=== PATIENT | female | born 1945 | race African-American/Black ===

== ENCOUNTER 2020-04-07 09:53 | Outpatient (CLI) | payer MEDICARE, OTHER, SELFPAY ==
[2020-04-07 10:14] LABS: Basophils Percent Auto 0.3 % (0.2-1.2); Eosinophils Absolute Auto 0.1 K/mm3 (0-0.3); Eosinophils Percent Auto 2.2 % (0-4.4); Hematocrit 37.9 % (37.0-47.0); Hemoglobin 11.4 g/dL (12.0-15.0); Immature Granulocyte Absolute 0.02 K/mm3 (0.00-0.031); Immature Granulocyte Percent A 0.3 % (0-0.5); Lymphocytes Absolute Auto 2.43 K/mm3 (0.9-3.2); Lymphocytes Percent Auto 41.4 % (18.3-44.2); Mean Corpuscular HGB Conc 30.1 g/dl (32-36); Mean Corpuscular Hemoglobin 23.3 pg (26-34); Mean Corpuscular Volume 77.5 fl (80-100); Mean Platelet Volume 9.8 fl (7.4-10.4); Monocytes Absolute Auto 0.5 K/mm3 (0.1-0.6); Neutrophils Absolute Auto 2.8 K/mm3 (1.3-6.7); Neutrophils Percent Auto 47.8 % (45.5-73.1); Platelet Count Result 297 k/mm3 (150-375); Red Blood Count 4.89 M/mm3 (4.2-5.4); Red Cell Distribution Width 15.2 % (11.5-14.5); White Blood Count 5.9 K/mm3 (4.5-10.0)
[2020-04-07 10:23] LABS: Hemoglobin A1C 6.8 % (<5.7)
[2020-04-07 10:26] LABS: Alanine Aminotransferase 25 U/L (4-35); Alkaline Phosphatase 94 U/L (38-126); Aspartate Amino Transferase 30 U/L (14-36); Bilirubin,Total 0.1 mg/dL (0.2-1.3); Blood Urea Nitrogen 15 mg/dL (7-17); Calcium 8.9 mg/dL (8.4-10.2); Carbon Dioxide 29 mmol/L (22-30); Chloride 104 mmol/L (98-107); Cholesterol 130 mg/dL (0-200); Estimated Glomerular Filt Rate > 60; Glucose 103 mg/dL (65-105); HDL Direct 60 mg/dL; Potassium 3.7 mmol/L (3.4-5.0); Sodium 140 mmol/L (137-145); Triglycerides 59 mg/dL (<150)
[2020-04-07 10:37] LABS: LDL Cholesterol Direct 49 mg/dL
[2020-04-07 10:51] LABS: Creatinine Urine 200.8 mg/dL
[2020-04-07 10:58] LABS: MALB Creatinine Ratio 9.2 mg/g (0-30); Microalbumin Urine Random 18.5 mg/L (0-16.7)
[2020-04-07 11:08] LABS: Vitamin D 25 Hydroxy 38.5 ng/mL
== END 2020-04-07 09:54 | disposition home or self-care (01) ==
PROVIDERS: PCP Internal Medicine; Visit Provider Internal Medicine
DX: E11.42 Type 2 diabetes mellitus with diabetic polyneuropathy (principal); E78.5 Hyperlipidemia, unspecified; E55.9 Vitamin D deficiency, unspecified
CPT/HCPCS: 36415; 80053; 80061; 82043; 82306; 83036; 85025

== ENCOUNTER 2020-06-15 08:18 | Outpatient (CLI) | payer MEDICARE, OTHER, SELFPAY ==
--- NOTE | 2020-06-15 08:34 | ECHO_ITS ---
Patient Info Name: Jeanne Kingsley Age: 74 years : 1945 Gender: Female Ht: 60 in Wt: 130 lbs BSA: 1.59 m2 HR: 71 bpm BP: 160 / 96 mmHg Heart Rhythm: Sinus Rhythm Technical Quality: Good Exam Date: 06/15/2020 8:50 AM Exam Location: [facility] Pulmonary Patient Status: Outpatient Admit Date: 06/15/2020 Staff Ordering Physician: Henrik Gibson MD [employer] Operator: Nicolette Jackson RDCS Attending Provider: Henrik Gibson MD Exam Type: CA echo doppler color flow Study Info Indications - rheumatic tricuspid insuffieciency Complete two-dimensional, color flow and Doppler transthoracic echocardiogram is performed. Summary 1. Left ventricular systolic function is normal, estimated at 60-65%. 2. There is no increased left ventricular wall thickness. 3. The left ventricular diastolic function is grade I diastolic dysfunction. 4. There is no aortic valve stenosis. 5. There is mild mitral valve regurgitation. 6. There is mild tricuspid valve regurgitation. 7. The tricuspid valve leaflets are mildly thickened. 8. No pulmonary hypertension, estimated pulmonary arterial systolic pressure is 26 mmHg. Left Ventricle Left ventricular chamber dimension is normal. Left ventricular systolic function is normal, estimated at 60-65%. There is no increased left ventricular wall thickness. The left ventricular diastolic function is grade I diastolic dysfunction. Right Ventricle Right ventricular chamber dimension is normal. Right ventricular systolic function is normal. Left Atria Left atrial chamber dimension is normal. Right Atria Right atrial chamber dimension is normal. Aortic Valve The aortic valve is probable trileaflet. There is no aortic valve stenosis. There is trace aortic valve regurgitation. Pulmonic Valve The pulmonic valve is not well visualized. There is trace pulmonic regurgitation. Mitral Valve The mitral valve has normal leaflets. There is mild mitral valve regurgitation. The mitral valve annulus is mildly calcified. Tricuspid Valve The tricuspid valve leaflets are mildly thickened. There is mild tricuspid valve regurgitation. No pulmonary hypertension, estimated pulmonary arterial systolic pressure is 26 mmHg. Pericardium/Pleural The pericardium appears normal. There is no pericardial effusion. Inferior Vena Cava Normal inferior vena cava with >50% collapse upon inspiration consistent with normal right atrial pressure, 5 mmHg. Aorta The aortic root size at the sinus of Valsalva is normal. There is mild aortic atherosclerosis. Left Ventricular Outflow Tract Name Value Normal LVOT 2D LVOT Diameter 2.0 cm LVOT Doppler LVOT Peak Gradient 3 mmHg LVOT Mean Gradient 2 mmHg LVOT VTI 20 cm LVOT VTI/AV VTI Ratio 0.9 LVOT Stroke Volume 60 ml LVOT CO 10.5 l/min LVOT CI 6.6 l/min/m2 Pulmonic Valve
== END 2020-06-15 08:19 | disposition home or self-care (01) ==
PROVIDERS: PCP Internal Medicine; Visit Provider Internal Medicine
DX: I07.1 Rheumatic tricuspid insufficiency (principal); I34.0 Nonrheumatic mitral (valve) insufficiency
CPT/HCPCS: 93306

== ENCOUNTER 2020-08-04 09:48 | Outpatient (CLI) | payer MEDICARE, OTHER, SELFPAY ==
[2020-08-04 10:49] LABS: Alanine Aminotransferase 48 U/L (4-35); Albumin Level 4.3 g/dL (3.5-5.1); Alkaline Phosphatase 98 U/L (38-126); Anion Gap 11 mmol/L (8-16); Aspartate Amino Transferase 34 U/L (14-36); Bilirubin,Total 0.1 mg/dL (0.2-1.3); Blood Urea Nitrogen 10 mg/dL (7-17); Calcium 9.8 mg/dL (8.4-10.2); Carbon Dioxide 30 mmol/L (22-30); Chloride 103 mmol/L (98-107); Estimated Glomerular Filt Rate > 60; Glucose 117 mg/dL (65-105); Potassium 5.1 mmol/L (3.4-5.0); Sodium 144 mmol/L (137-145)
[2020-08-04 10:57] LABS: Basophils Percent Auto 0.4 % (0.2-1.2); Eosinophils Absolute Auto 0.2 K/mm3 (0-0.3); Eosinophils Percent Auto 3.1 % (0-4.4); Hematocrit 39.8 % (37.0-47.0); Immature Granulocyte Absolute 0.01 K/mm3 (0.00-0.031); Immature Granulocyte Percent A 0.2 % (0-0.5); Lymphocytes Absolute Auto 2.34 K/mm3 (0.9-3.2); Lymphocytes Percent Auto 42.4 % (18.3-44.2); Mean Corpuscular HGB Conc 30.2 g/dl (32-36); Mean Corpuscular Hemoglobin 23.3 pg (26-34); Mean Corpuscular Volume 77.1 fl (80-100); Mean Platelet Volume 9.7 fl (7.4-10.4); Monocytes Absolute Auto 0.4 K/mm3 (0.1-0.6); Monocytes Percent Auto 7.8 % (2.6-8.5); Neutrophils Absolute Auto 2.6 K/mm3 (1.3-6.7); Neutrophils Percent Auto 46.1 % (45.5-73.1); Platelet Count Result 316 k/mm3 (150-375); Red Blood Count 5.16 M/mm3 (4.2-5.4); Red Cell Distribution Width 14.7 % (11.5-14.5); White Blood Count 5.5 K/mm3 (4.5-10.0)
[2020-08-04 11:31] LABS: Hemoglobin A1C 6.6 % (<5.7)
[2020-08-04 11:46] LABS: Iron 93 ug/dL (37-170)
[2020-08-04 11:52] LABS: Creatinine Urine 73.4 mg/dL
[2020-08-04 11:55] LABS: MALB Creatinine Ratio 9.5 mg/g (0-30); Percent Iron Saturation 31 % (20-50)
== END 2020-08-04 09:49 | disposition home or self-care (01) ==
PROVIDERS: PCP Internal Medicine; Visit Provider Internal Medicine
DX: E11.42 Type 2 diabetes mellitus with diabetic polyneuropathy (principal); D64.9 Anemia, unspecified
CPT/HCPCS: 36415; 80053; 82043; 82728; 83036; 83540; 83550; 85025

== ENCOUNTER 2020-11-12 15:02 | Outpatient (CLI) | payer MEDICARE, OTHER, SELFPAY ==
--- NOTE | ~2020-11-12 | MM_ITS ---
EXAMINATION: MM screening maria teresa BI w kevin HISTORY: Screening mammogram TECHNIQUE: Craniocaudal and mediolateral oblique 3-D tomosynthesis images were obtained and synthetic 2-D images were generated. CAD analysis was submitted and interpreted. COMPARISON: 07/14/2019, 820 bilateral digital screening mammogram examinations BREAST PARENCHYMAL COMPOSITION: The breasts are heterogeneously dense, which may obscure small masses . FINDINGS: There is no evidence of suspicious mass, calcification, or architectural distortion to sugg est malignancy in either breast. There has been no suspicious interval change. IMPRESSION: 1. No mammographic evidence of malignancy. 2. Recommend routine screening mammography in one year. BI-RADS Category 1: Negative Reviewed, dictated and finalized at location A. ONICS ENGINEER
== END 2020-11-12 15:03 | disposition home or self-care (01) ==
LOC: ANHIMG 15:06
PROVIDERS: PCP Internal Medicine; Visit Provider Internal Medicine
DX: Z12.31 Encounter for screening mammogram for malignant neoplasm of breast (principal)
CPT/HCPCS: 77063; 77067

== ENCOUNTER 2021-01-05 13:16 | Outpatient (CLI) | payer MEDICARE, OTHER, SELFPAY ==
--- NOTE | ~2021-01-05 | MR_ITS ---
EXAMINATION: MR brain/brain stem wo con DATE: 01/05/2021 14:00 INDICATION: Dizziness. TECHNIQUE: Magnetic resonance imaging (MRI) of the brain and brainstem was performed without intraven ous contrast. Sequences included sagittal and axial T1-weighted FSE, axial diffusion-weighted FS EPI, axial T2*-weighted GRE, axial T2-weighted FLAIR Propeller, and axial T2-weighted Propeller. Apparent diffusion coefficient (ADC) maps were created. COMPARISON: Head CT 03/29/19 FINDINGS: There are scattered areas of nonspecific increased T2-weighted signal intensity in the cere bral white matter, which is within normal limits for the patient's age. There is no intracranial hemo rrhage, acute infarction, or abnormal intracranial mass lesion. The ventricles are normal in size. Th e paranasal sinuses are clear. There are likely changes of right ocular lens replacement surgery. The mastoid air cells are normal. IMPRESSION: 1. Normal aging brain. Reviewed, dictated and finalized at location A. REPORT DEVELOPER IMPRESSION: 1. Normal aging brain.
== END 2021-01-05 13:17 | disposition home or self-care (01) ==
PROVIDERS: PCP Internal Medicine; Visit Provider Psychiatry & Neurology Neurology
DX: R42 Dizziness and giddiness (principal)
CPT/HCPCS: 70551

== ENCOUNTER 2021-01-14 12:57 | Outpatient (CLI) | payer MEDICARE, OTHER, SELFPAY | END 2021-01-14 12:58 | disposition home or self-care (01) | PROVIDERS: PCP Internal Medicine; Visit Provider Psychiatry & Neurology Neurology | DX: H93.19 Tinnitus, unspecified ear (principal) | CPT/HCPCS: 92557; 92567 ==

== ENCOUNTER 2021-03-13 13:00 | Outpatient (RCR) | payer MEDICARE, OTHER, SELFPAY | END 2021-05-12 23:59 | disposition home or self-care (01) | LOC: ANHAUDASC 13:00 | PROVIDERS: PCP Internal Medicine; Visit Provider Internal Medicine | DX: Z46.1 Encounter for fitting and adjustment of hearing aid (principal) | CPT/HCPCS: V5260 ==

== ENCOUNTER 2021-04-06 08:13 | Outpatient (CLI) | payer MEDICARE, OTHER, SELFPAY ==
[2021-04-06 08:42] LABS: Basophils Percent Auto 0.5 % (0.2-1.2); Eosinophils Absolute Auto 0.1 K/mm3 (0-0.3); Hematocrit 35.4 % (37.0-47.0); Hemoglobin 10.8 g/dL (12.0-15.0); Immature Granulocyte Absolute 0.02 K/mm3 (0.00-0.031); Immature Granulocyte Percent A 0.3 % (0-0.5); Lymphocytes Absolute Auto 2.68 K/mm3 (0.9-3.2); Lymphocytes Percent Auto 41.9 % (18.3-44.2); Mean Corpuscular HGB Conc 30.5 g/dl (32-36); Mean Corpuscular Hemoglobin 23.4 pg (26-34); Mean Corpuscular Volume 76.6 fl (80-100); Mean Platelet Volume 9.7 fl (7.4-10.4); Monocytes Absolute Auto 0.6 K/mm3 (0.1-0.6); Monocytes Percent Auto 8.9 % (2.6-8.5); Neutrophils Percent Auto 46.4 % (45.5-73.1); Platelet Count Result 304 k/mm3 (150-375); Red Blood Count 4.62 M/mm3 (4.2-5.4); Red Cell Distribution Width 14.6 % (11.5-14.5); White Blood Count 6.4 K/mm3 (4.5-10.0)
[2021-04-06 08:51] LABS: Alanine Aminotransferase 34 U/L (4-35); Albumin Level 3.9 g/dL (3.5-5.1); Alkaline Phosphatase 56 U/L (38-126); Anion Gap 7 mmol/L (8-16); Aspartate Amino Transferase 34 U/L (14-36); Bilirubin,Total 0.2 mg/dL (0.2-1.3); Blood Urea Nitrogen 10 mg/dL (7-17); Calcium 9.1 mg/dL (8.4-10.2); Carbon Dioxide 28 mmol/L (22-30); Chloride 106 mmol/L (98-107); Cholesterol 124 mg/dL (0-200); Estimated Glomerular Filt Rate > 60; Glucose 113 mg/dL (65-105); HDL Direct 61 mg/dL; Potassium 3.7 mmol/L (3.4-5.0); Sodium 141 mmol/L (137-145); Triglycerides 79 mg/dL (<150)
[2021-04-06 08:51] LABS: Creatinine Urine 286.9 mg/dL
[2021-04-06 08:55] LABS: Hemoglobin A1C 6.4 % (<5.7)
[2021-04-06 08:56] LABS: MALB Creatinine Ratio 7.7 mg/g (0-30); Microalbumin Urine Random 22.1 mg/L (0-16.7)
[2021-04-06 09:01] LABS: LDL Cholesterol Direct 37 mg/dL
[2021-04-06 09:23] LABS: Iron 65 ug/dL (37-170)
[2021-04-06 09:41] LABS: Percent Iron Saturation 26 % (20-50); Vitamin D 25 Hydroxy 80.8 ng/mL
== END 2021-04-06 08:14 | disposition home or self-care (01) ==
PROVIDERS: PCP Internal Medicine; Visit Provider Internal Medicine
DX: K58.1 Irritable bowel syndrome with constipation (principal); I10 Essential (primary) hypertension; Z86.69 Personal history of other diseases of the nervous system and sense organs; G62.9 Polyneuropathy, unspecified; E11.42 Type 2 diabetes mellitus with diabetic polyneuropathy; E55.9 Vitamin D deficiency, unspecified; D64.9 Anemia, unspecified; E78.2 Mixed hyperlipidemia
CPT/HCPCS: 36415; 80053; 80061; 82043; 82306; 82728; 83036; 83540; 83550; 84443; 85025

== ENCOUNTER 2021-04-11 12:38 | Emergency (ER) | payer MEDICARE, OTHER, SELFPAY ==
--- NOTE | ~2021-04-11 | XR_ITS ---
EXAMINATION: XR chest 1V portable EXAM DATE: 04/11/2021 14:12 INDICATION: Headache, weakness. TECHNIQUE: Portable AP frontal chest x-ray was obtained. Comparison is made to prior examination from 01/06/2018. FINDINGS: Previously seen large hiatal hernia no longer identified. There is elevated left hemidiaphr agm, possible paralysis. Follow-up nonemergent sniff test could diagnose this if not previously worke d up. No confluent consolidation, pneumothorax or pleural effusion suspected. Cardiomediastinal silhouette is normal. There are mild bony degenerative changes. IMPRESSION: 1. Chronic left hemidiaphragm elevation, possible paralysis. Reviewed, dictated and finalized at location B.
--- NOTE | ~2021-04-11 | XR_ITS ---
EXAMINATION: XR shoulder LT min 2V DATE: 04/11/2021 14:28 INDICATION: Nontraumatic left shoulder pain TECHNIQUE: AP internally and externally rotated, AP oblique externally rotated and transscapular Y vi ews of the left shoulder were obtained. COMPARISON: None FINDINGS: Normal alignment. No fracture.Mild glenohumeral and acromioclavicular osteoarthritis. Cystic change along the anterior aspect of the greater tuberosity. Soft tissues are unremarkable. Visualized portio n of the lungs are clear. IMPRESSION: 1. Glenohumeral and acromioclavicular osteoarthritis. 2. Cystic change at the superior facet of the greater tuberosity which could be seen with supraspinat us tendon disease. Reviewed, dictated and finalized at location A. IMPRESSION: 1. Glenohumeral and acromioclavicular osteoarthritis. 2. Cystic change at the superior facet of the greater tuberosity which could be seen with supraspinatus tendon disease.
--- NOTE | ~2021-04-11 | CT_ITS ---
EXAMINATION: CTA brain carotid EXAM DATE: 04/11/2021 15:34 INDICATION: Headaches left side of head, neck and arm. Stroke. TECHNIQUE: Noncontrast head CT. Spiral CTA of the carotid arteries was performed with intravenous i njection 100 cc of Omnipaque 350. Axial, coronal, sagittal reformatted images reviewed. Additional r eformatted images created on dedicated 3-D workstation. NASCET comparable standard used to assess th e degree of arterial stenosis. Spiral CT angiogram cerebral arteries performed with the same intrave nous injection of contrast. Source images of the brain CTA transferred to dedicated workstation for 3 -D rotational image creation. Coronal, sagittal maximum intensity pixel images also reviewed. The d ose-length product (DLP) for this examination was 1415.53 mGy-cm. The exposure was tailored accordi ng to patient size, and iterative reconstruction (ASIR) was used as additional dose reduction techniq ue. Comparison is made to prior examination from 03/29/2019. FINDINGS: There is no carotid bulb arteriosclerosis or stenosis. The vertebral arteries are codominan t. There is no carotid or vertebral basilar arterial dissection or fibromuscular dysplasia. There ar e no cerebral artery aneurysms. There is symmetric cerebral artery arborization. The sagittal, transv erse and sigmoid sinuses enhance normally, no venous sinus thrombosis. Internal cerebral veins also e nhance normally. There is no acute intraparenchymal hemorrhage. No evidence of intraparenchymal brain mass lesion. N o evidence of acute infarction. There is no mass effect or midline shift. There is no obstructive hyd rocephalus suspected. There are no extra-axial collections. Bilateral cataract surgery. Incidental Findings: Moderate cervical spondylosis. IMPRESSION: 1. No acute carotid or intracranial findings. 2. Bilateral carotid bulb 0% stenosis. Reviewed, dictated and finalized at location B.
[2021-04-11 12:44] VITALS: BP 158/82; PULSE 79; RESP 16; O2SAT 99
--- NOTE | 2021-04-11 13:44 | ED.HA ---
HPI - Headache General Chief Complaint: Headache Stated Complaint: left sided head pain/left arm pain Time Seen by Provider: 04/11/21 13:38 Related Data Home Medications Medication Instructions Recorded Confirmed blood sugar diagnostic #10 each 09/15/19 02/04/21 calcium carbonate-vitamin D3 600 1 tablet PO BID 04/04/20 02/04/21 mg (1,500 mg)-800 unit tablet multivit with 1 tablet PO DAILY 04/04/20 02/04/21 easilves-qhny-PC-lutein 8 mg iron-400 mcg-300 mcg tablet Allergies Allergy/AdvReac Type Severity Reaction Status Date / Time codeine Allergy Severe Itching Verified 04/11/21 12:39 morphine Allergy Severe Rash Verified 04/11/21 12:39 clindamycin Allergy Mild Nausea and Verified 04/11/21 12:39 Vomiting ketorolac Allergy Mild Itching Verified 04/11/21 12:39 gabapentin Allergy Unknown Nausea Verified 04/11/21 12:39 trimethoprim Allergy Unknown unknown Verified 04/11/21 12:39 metformin AdvReac Mild Vomiting Verified 04/11/21 12:39 Sulfa (Sulfonamide AdvReac Mild Nausea and Verified 04/11/21 12:39 Antibiotics) Vomiting meclizine AdvReac Shakiness Verified 04/11/21 12:56 PMFSH Past Medical History Medical History DDD (degenerative disc disease) GERD (gastroesophageal reflux disease) Migraine headache Neuropathy Seasonal allergies Tinnitus Chronic Surgical History Surgical History History of cardiac catheterization History of cataract surgery History of hernia repair History of hysterectomy Family History Family History Mother Hypertension Cerebrovascular accident Family history of congestive heart failure, Onset Age: 72 Family history of heart disease in male family member before age 55 Patient's mother is Acute myocardial infarction Father Patient's father is Cerebrovascular accident Sibling Family history of lupus erythematosus Other Diabetes mellitus Family history of allergic disorder Social History Social History (Updated 02/04/21 @ 10:45 by Mely Peguero) Years smoked: 15 Tobacco type: cigarettes Smoking end date: 10/26/85 Alcohol intake: never Gender identity (if verbalized by the patient): Female Course Vital Signs Vital signs: Vital Signs Pulse Rate 79 04/11/21 12:44 Respiratory Rate 16 04/11/21 12:44 Blood Pressure 158/82 H 04/11/21 12:44 Pulse Oximetry 99 04/11/21 12:44 Pulse Rate 79 04/11/21 12:44 Respiratory Rate 16 04/11/21 12:44 Blood Pressure 158/82 H 04/11/21 12:44 Pulse Oximetry 99 04/11/21 12:44 Discharge Plan Discharge Prescriptions: No Action Centrum Silver Women 8 mg iron-400 mcg-300 mcg tablet 1 tablet PO DAILY RF: 0 calcium carbonate-vitamin D3 [Caltrate with Vitamin D3] 600 mg(1,500mg) -800 unit tablet 1 tablet PO BID RF: 0 ferrous sulfate 325 mg (65 mg iron) tablet 325 mg PO ONCE Qty: 90 RF: 1 (DME) FreeStyle Test Strip See Rx Instructions .ROUTE .MEDSUPPLY Qty: 10 RF: 0 atorvastatin 10 mg tablet 10 mg PO DAILY Qty: 30 RF: 0 omega-3 fatty acids [Fish Oil Concentrate] 1,000 mg capsule 1,000 mg PO BID Qty: 1 RF: 0 (DME) lancets [Easy Touch Lancets] 28 gauge misc See Rx Instructions .ROUTE .MEDSUPPLY Qty: 200 RF: 1 ibuprofen 800 mg tablet See Rx Instructions .ROUTE .COMPLEX Qty: 90 RF: 3 atenolol 50 mg tablet See Rx Instructions .ROUTE .COMPLEX Qty: 90 RF: 3 (DME) FreeStyle Lite Strips Strip See Rx Instructions .ROUTE .MEDSUPPLY Qty: 200 RF: 1 cyclobenzaprine 5 mg tablet 5 mg PO TID PRN (Reason: muscle spasm) Qty: 21 RF: 0 omeprazole 40 mg capsule,delayed release(DR/EC) See Rx Instructions .ROUTE .COMPLEX Qty: 180 RF: 3 diltiazem HCl 180 mg capsule,extended release 24hr See Rx Instructions .ROUTE .COMPLEX Qty: 90 RF: 3 amitri
--- NOTE | 2021-04-11 14:02 | ECG_ITS ---
Measurements Intervals [place] Rate: 69 P: 33 GA: 190 QRS: -5 QRSD: 92 T: 17 QT: 386 QTc: 416 Interpretive Statements SINUS RHYTHM INCOMPLETE RIGHT BUNDLE BRANCH BLOCK BORDERLINE T WAVE ABNORMALITY- ANTERIOR LEADS BORDERLINE ECG Electronically Signed On 04-11-2021 14:42:31 CDT by Abelardo Corea D.O.
--- NOTE | 2021-04-11 14:14 | ED.GENADULT ---
HPI - General Adult General Chief complaint: Headache Stated complaint: left sided head pain/left arm pain Time Seen by Provider: 04/11/21 13:38 Source: patient and RN notes reviewed Mode of arrival: ambulatory Limitations: no limitations History of Present Illness HPI narrative: Patient 75 years old -[place] female came from home by private car complaining of left upper extremity heaviness and pain at left shoulder started yesterday morning. Has been constant since. Woke up this morning with pain on the left side of the head radiating down the left side of the neck and left upper back. Patient unable to describe what kind of pain. On arrival to the emergency room patient denied any headache but the pain at the left neck left upper back left shoulder still the. Patient was not able to tell me the heaviness and weakness of the left upper extremity because of the pain or because of weakness only. Patient denies any fever, chills, nausea, vomiting. History of diabetes, hypertension, hyperlipidemia, does not take blood thinner. Patient does smoke or drink or uses drugs. Patient reports having cataract surgery recently and been sleeping on the couch in the last 5 days to watch TV with uncomfortable positions Related Data Home Medications Medication Instructions Recorded Confirmed blood sugar diagnostic #10 each 09/15/19 02/04/21 calcium carbonate-vitamin D3 600 1 tablet PO BID 04/04/20 02/04/21 mg (1,500 mg)-800 unit tablet multivit with 1 tablet PO DAILY 04/04/20 02/04/21 byrbdclt-pdik-LP-lutein 8 mg iron-400 mcg-300 mcg tablet Allergies Allergy/AdvReac Type Severity Reaction Status Date / Time codeine Allergy Severe Itching Verified 04/11/21 12:39 morphine Allergy Severe Rash Verified 04/11/21 12:39 clindamycin Allergy Mild Nausea and Verified 04/11/21 12:39 Vomiting ketorolac Allergy Mild Itching Verified 04/11/21 12:39 gabapentin Allergy Unknown Nausea Verified 04/11/21 12:39 trimethoprim Allergy Unknown unknown Verified 04/11/21 12:39 metformin AdvReac Mild Vomiting Verified 04/11/21 12:39 Sulfa (Sulfonamide AdvReac Mild Nausea and Verified 04/11/21 12:39 Antibiotics) Vomiting meclizine AdvReac Shakiness Verified 04/11/21 12:56 Review of Systems Review of Systems: Narrative: CONSTITUTIONAL: Denies fever, chills, or sweats. EYES: Denies visual changes, redness, or discharge. ENT: Denies rhinorrhea, congestion, sore throat, or otalgia. CARDIOVASCULAR: Denies chest pain, palpitations, or edema. RESPIRATORY: Denies cough or dyspnea. GASTROINTESTINAL: Denies abdominal pain, nausea, vomiting, or diarrhea. GENITOURINARY: Denies dysuria or hematuria. SKIN: Denies rash or itching. MUSCULOSKELETAL: Denies back pain, joint pain, or myalgia. NEUROLOGIC: Denies headache, numbness, or weakness. PSYCHIATRIC: Denies anxiety or depression. [facility] Past Medical History Medical History DDD (degenerative disc disease) GERD (gastroesophageal reflux disease) Migraine headache Neuropathy Seasonal allergies Tinnitus Chronic Surgical History Surgical History History of cardiac catheterization History of cataract surgery History of hernia repair History of hysterectomy Family History Family History Mother Hypertension Cerebrovascular accident Family history of congestive heart failure, Onset Age: 72 Family history of heart disease in male family member before age 55 Patient's mother is Acute myocardial infarction Father Patient's father is Cerebrovascular accident Sibling Family history of lupus erythematosus Other Diabetes mellitus Family history of allergic disorder Social History Social History Years smoked: 15 Tobacco type: cigarettes Smoking end date: 10/26/85
[2021-04-11 14:55] VITALS: BP 150/91; PULSE 69; RESP 16; O2SAT 99
[2021-04-11 15:03] LABS: Basophils Percent Auto 0.3 % (0.2-1.2); Eosinophils Absolute Auto 0.1 K/mm3 (0-0.3); Eosinophils Percent Auto 1.5 % (0-4.4); Hemoglobin 10.9 g/dL (12.0-15.0); Immature Granulocyte Absolute 0.01 K/mm3 (0.00-0.031); Immature Granulocyte Percent A 0.1 % (0-0.5); Lymphocytes Absolute Auto 2.47 K/mm3 (0.9-3.2); Lymphocytes Percent Auto 31.3 % (18.3-44.2); Mean Corpuscular HGB Conc 30.3 g/dl (32-36); Mean Corpuscular Hemoglobin 23.3 pg (26-34); Mean Corpuscular Volume 76.9 fl (80-100); Mean Platelet Volume 9.9 fl (7.4-10.4); Monocytes Absolute Auto 0.5 K/mm3 (0.1-0.6); Monocytes Percent Auto 5.9 % (2.6-8.5); Neutrophils Absolute Auto 4.8 K/mm3 (1.3-6.7); Neutrophils Percent Auto 60.9 % (45.5-73.1); Platelet Count Result 299 k/mm3 (150-375); Red Blood Count 4.68 M/mm3 (4.2-5.4); Red Cell Distribution Width 14.9 % (11.5-14.5); White Blood Count 7.9 K/mm3 (4.5-10.0)
[2021-04-11 15:13] LABS: INR 0.8; Partial Thromboplastin Time 24.1 SECONDS (22.3-36.8)
[2021-04-11 15:16] LABS: Alanine Aminotransferase 21 U/L (4-35); Albumin Level 3.8 g/dL (3.5-5.1); Alkaline Phosphatase 70 U/L (38-126); Anion Gap 7 mmol/L (8-16); Aspartate Amino Transferase 26 U/L (14-36); Bilirubin,Total 0.2 mg/dL (0.2-1.3); Blood Urea Nitrogen 11 mg/dL (7-17); Calcium 9.2 mg/dL (8.4-10.2); Carbon Dioxide 28 mmol/L (22-30); Chloride 106 mmol/L (98-107); Creatine Kinase 43 U/L (30-135); Estimated CRCL calculation 49 ml/min; Estimated Glomerular Filt Rate > 60; Glucose 80 mg/dL (65-105); Potassium 3.8 mmol/L (3.4-5.0); Sodium 141 mmol/L (137-145)
[2021-04-11 15:17] LABS: Estimated CRCL calculation 43 ml/min; Estimated Glomerular Filt Rate > 60
[2021-04-11 15:43] LABS: Erythrocyte Sedimentation Rate 22 mm/hr (0-20)
[2021-04-11 16:42] VITALS: BP 163/85; PULSE 78; RESP 15; O2SAT 100
== END 2021-04-11 16:47 | disposition home or self-care (01) ==
PROVIDERS: Emergency Provider Emergency Medicine; PCP Internal Medicine
DX: M25.512 Pain in left shoulder (principal); M54.2 Cervicalgia; K21.9 Gastro-esophageal reflux disease without esophagitis; G62.9 Polyneuropathy, unspecified; Z98.49 Cataract extraction status, unspecified eye; Z87.891 Personal history of nicotine dependence; M19.012 Primary osteoarthritis, left shoulder; I45.10 Unspecified right bundle-branch block; R94.31 Abnormal electrocardiogram [ECG] [EKG]
CPT/HCPCS: 36415; 70496; 70498; 71045; 73030; 80053; 82550; 85025; 85610; 85652; 85730; 93005; 99284; Q9967

== ENCOUNTER 2021-12-24 17:41 | Outpatient (CLI) | payer MEDICARE, OTHER, SELFPAY ==
[2021-12-24 18:16] LABS: Basophils Percent Auto 0.2 % (0.2-1.2); Eosinophils Absolute Auto 0.1 K/mm3 (0-0.3); Eosinophils Percent Auto 2.1 % (0-4.4); Hematocrit 40.2 % (37.0-47.0); Hemoglobin 11.8 g/dL (12.0-15.0); Immature Granulocyte Absolute 0.01 K/mm3 (0.00-0.031); Immature Granulocyte Percent A 0.2 % (0-0.5); Lymphocytes Absolute Auto 3.16 K/mm3 (0.9-3.2); Lymphocytes Percent Auto 50.8 % (18.3-44.2); Mean Corpuscular HGB Conc 29.4 g/dl (32-36); Mean Corpuscular Hemoglobin 23.5 pg (26-34); Mean Corpuscular Volume 79.9 fl (80-100); Monocytes Absolute Auto 0.5 K/mm3 (0.1-0.6); Monocytes Percent Auto 8.2 % (2.6-8.5); Neutrophils Absolute Auto 2.4 K/mm3 (1.3-6.7); Neutrophils Percent Auto 38.5 % (45.5-73.1); Platelet Count Result 290 k/mm3 (150-375); Red Blood Count 5.03 M/mm3 (4.2-5.4); Red Cell Distribution Width 14.6 % (11.5-14.5); White Blood Count 6.2 K/mm3 (4.5-10.0)
[2021-12-24 18:28] LABS: Alanine Aminotransferase 36 U/L (4-35); Albumin Level 4.4 g/dL (3.5-5.1); Alkaline Phosphatase 83 U/L (38-126); Anion Gap 8 mmol/L (8-16); Aspartate Amino Transferase 27 U/L (14-36); Bilirubin,Total 0.1 mg/dL (0.2-1.3); Blood Urea Nitrogen 9 mg/dL (7-17); Calcium 8.9 mg/dL (8.4-10.2); Carbon Dioxide 28 mmol/L (22-30); Chloride 105 mmol/L (98-107); Estimated Glomerular Filt Rate > 60; Glucose 96 mg/dL (65-110); Potassium 4.1 mmol/L (3.4-5.0); Sodium 141 mmol/L (137-145)
[2021-12-24 18:32] LABS: Creatinine Urine 21.1 mg/dL
[2021-12-24 18:34] LABS: Hypochromasia 1+ (NORMAL); Ovalocytes 1+ (NORMAL); Platelet Estimate Adequate (Adequate)
[2021-12-24 19:30] LABS: Microalbumin Urine Random < 6.0 mg/L (0-16.7)
[2021-12-24 22:14] LABS: Iron 96 ug/dL (37-170)
[2021-12-24 22:31] LABS: Percent Iron Saturation 33 % (20-50)
[2021-12-24 23:54] LABS: Hemoglobin A1C 6.5 % (<5.7)
== END 2021-12-24 17:42 | disposition home or self-care (01) ==
PROVIDERS: PCP Internal Medicine; Visit Provider Internal Medicine
DX: D64.9 Anemia, unspecified (principal); E11.42 Type 2 diabetes mellitus with diabetic polyneuropathy; E78.5 Hyperlipidemia, unspecified; G31.84 Mild cognitive impairment of uncertain or unknown etiology; I10 Essential (primary) hypertension
CPT/HCPCS: 36415; 80053; 82043; 82728; 83036; 83540; 83550; 85025

== ENCOUNTER 2022-02-04 00:53 | Day surgery (SDC) | payer MEDICARE, OTHER, SELFPAY ==
[2022-01-23 13:00] VITALS: BMI 26.6
--- NOTE | 2022-02-03 12:49 | WPDANESEPPF ---
Anes - Initial Pre Proc Eval Procedure: Operation Date: 02/04/22 11:00 Proposed Procedures p Colonoscopy - Charbel Frias MD Date/Time: 02/03/22 12:49 Surgeon: Charbel Frias MD Pre Op Diagnosis: Rectal bleeding Patient Data Age: 76 Gender: F Height: 1.52 m Weight: 62 kg Allergies Allergy/AdvReac Type Severity Reaction Status Date / Time codeine Allergy Severe Itching Verified 02/04/22 10:03 morphine Allergy Severe Rash Verified 02/04/22 10:03 clindamycin Allergy Mild Nausea and Verified 02/04/22 10:03 Vomiting ketorolac Allergy Mild Itching Verified 02/04/22 10:03 gabapentin Allergy Unknown Nausea Verified 02/04/22 10:03 trimethoprim Allergy Unknown unknown Verified 02/04/22 10:03 metformin AdvReac Mild Vomiting Verified 02/04/22 10:03 Sulfa (Sulfonamide AdvReac Mild Nausea and Verified 02/04/22 10:03 Antibiotics) Vomiting meclizine AdvReac Shakiness Verified 02/04/22 10:03 metoclopramide [From Reglan] AdvReac Anxiety Verified 02/04/22 10:03 Home Medications Medication Instructions Recorded Confirmed Type blood sugar diagnostic #10 each 09/15/19 02/04/22 History omega-3 fatty acids 1,000 mg 1,000 mg PO BID #1 cap 09/15/19 02/04/22 Rx capsule lancets 28 gauge #200 each 03/13/20 02/04/22 Rx calcium carbonate 600 mg-vitamin 1 tablet PO BID 04/04/20 02/04/22 History D3 20 mcg (800 unit) tablet multivit with 1 tablet PO DAILY 04/04/20 02/04/22 History fmrjyiet-ueqr-PG-lutein 8 mg iron-400 mcg-300 mcg tablet atorvastatin 10 mg tablet 10 mg PO DAILY #1 tablet 06/07/21 02/04/22 Rx omeprazole 40 mg capsule,delayed 40 mg PO DAILY #90 cap 06/07/21 02/04/22 Rx release blood sugar diagnostic #200 each 07/24/21 02/04/22 Rx ibuprofen 800 mg tablet 800 mg PO BID PRN #90 tablet 10/01/21 02/04/22 Rx sitagliptin 100 mg tablet 100 mg PO DAILY #90 tablet 12/17/21 02/04/22 Rx amitriptyline 100 mg PO DAILY 01/23/22 02/04/22 History atenolol 50 mg PO DAILY 01/23/22 02/04/22 History diltiazem HCl 180 mg PO DAILY 01/23/22 02/04/22 History ferrous sulfate 325 mg PO DAILY 01/23/22 02/04/22 History losartan 100 mg PO DAILY 01/23/22 02/04/22 History Patient hx anesthesia problems: none Family hx anesthesia problems: none Results Review: All pre-operative results and documents have been reviewed as part of the pre-operative evaluation. [facility] Past Medical History Medical History (Updated 02/03/22 @ 12:50 by Eloy Cheng DO) DDD (degenerative disc disease) Diabetes type 2, controlled Essential (primary) hypertension GERD (gastroesophageal reflux disease) Migraine headache Neuropathy Seasonal allergies Tinnitus Chronic Surgical History Surgical History History of cardiac catheterization History of cataract surgery History of hernia repair History of hysterectomy Family History Family History Mother Hypertension Cerebrovascular accident Family history of congestive heart failure, Onset Age: 72 Family history of heart disease in male family member before age 55 Patient's mother is Acute myocardial infarction Father Patient's father is Cerebrovascular accident Sibling Family history of lupus erythematosus Other Diabetes mellitus Family history of allergic disorder Social History Social History (Updated 01/01/22 @ 14:17 by Ana Maria Nelson) Years smoked: 15 Smoking status: Former smoker Tobacco type: cigarettes Second hand tobacco smoke exposure: Yes Smoking end date: 10/26/85 Alcohol intake: never Living arrangements: alone Gender identity (if verbalized by the patient): Female Spiritual care concerns: No Anes - Eval Final PreProcedure Day of Procedure 02/03/22 12:49 Patient weight: overweight Heart: regular rate and rhythm Lungs: clear to auscultation and normal air movement Airway: Mallampati scale clas
[2022-02-04 10:05] VITALS: BP 135/83; PULSE 80; RESP 16; TEMP 36.1; O2SAT 99; BMI 25.9
[2022-02-04] MEDS: LACTATED RINGERS 1,000 ML 150 ML IV CONT (10:15)
[2022-02-04 10:22] LABS: Glucose Point of Care 125 mg/dl (65-105)
--- NOTE | 2022-02-04 10:51 | WPDGICN ---
Assessment and Plan Assessment and plan (1) Rectal bleeding: Code(s): K62.5 - Hemorrhage of anus and rectum Status: Acute Assessment and Plan: Patient has intermittent bright red blood per rectum. For this reason screening colonoscopy is to be performed. This report follows separately further recommendations will be given after endoscopy. High-fiber diet is initially advised. GI Consult Note Consult date/time: 02/04/22 10:51 HPI: Jeanne Kingsley is a 76 year old female Presents for colonoscopy. Patient recently has noticed bright red blood per rectum. For this reason colonoscopy advised. She notices it primarily outside the stools. She denies any significant abdominal pain. Does not happen all the time and. In fact it has been several weeks since last notice. Patient does have a past medical history of paraesophageal hiatal hernia repair. She currently is doing well with no difficulty swallowing. Family history is noncontributory. Review of Systems Review of Systems: All systems reviewed & are unremarkable except as noted in HPI and below PMFSH Past Medical History Medical History (Updated 02/03/22 @ 12:50 by Eloy Cheng DO) DDD (degenerative disc disease) Diabetes type 2, controlled Essential (primary) hypertension GERD (gastroesophageal reflux disease) Migraine headache Neuropathy Seasonal allergies Tinnitus Chronic Surgical History Surgical History History of cardiac catheterization History of cataract surgery History of hernia repair History of hysterectomy Family History Family History Mother Hypertension Cerebrovascular accident Family history of congestive heart failure, Onset Age: 72 Family history of heart disease in male family member before age 55 Patient's mother is Acute myocardial infarction Father Patient's father is Cerebrovascular accident Sibling Family history of lupus erythematosus Other Diabetes mellitus Family history of allergic disorder Social History Social History (Updated 01/01/22 @ 14:17 by Ana Maria Nelson) Years smoked: 15 Smoking status: Former smoker Tobacco type: cigarettes Second hand tobacco smoke exposure: Yes Smoking end date: 10/26/85 Alcohol intake: never Living arrangements: alone Gender identity (if verbalized by the patient): Female Spiritual care concerns: No Meds Home Medications and Allergies Home Medications Medication Instructions Recorded Confirmed Type blood sugar diagnostic #10 each 09/15/19 02/04/22 History omega-3 fatty acids 1,000 mg 1,000 mg PO BID #1 cap 09/15/19 02/04/22 Rx capsule lancets 28 gauge #200 each 03/13/20 02/04/22 Rx calcium carbonate 600 mg-vitamin 1 tablet PO BID 04/04/20 02/04/22 History D3 20 mcg (800 unit) tablet multivit with 1 tablet PO DAILY 04/04/20 02/04/22 History ywygjzda-pmwi-FL-lutein 8 mg iron-400 mcg-300 mcg tablet atorvastatin 10 mg tablet 10 mg PO DAILY #1 tablet 06/07/21 02/04/22 Rx omeprazole 40 mg capsule,delayed 40 mg PO DAILY #90 cap 06/07/21 02/04/22 Rx release blood sugar diagnostic #200 each 07/24/21 02/04/22 Rx ibuprofen 800 mg tablet 800 mg PO BID PRN #90 tablet 10/01/21 02/04/22 Rx sitagliptin 100 mg tablet 100 mg PO DAILY #90 tablet 12/17/21 02/04/22 Rx amitriptyline 100 mg PO DAILY 01/23/22 02/04/22 History atenolol 50 mg PO DAILY 01/23/22 02/04/22 History diltiazem HCl 180 mg PO DAILY 01/23/22 02/04/22 History ferrous sulfate 325 mg PO DAILY 01/23/22 02/04/22 History losartan 100 mg PO DAILY 01/23/22 02/04/22 History Allergies Allergy/AdvReac Type Severity Reaction Status Date / Time codeine Allergy Severe Itching Verified 02/04/22 10:03 morphine Allergy Severe Rash Verified 02/04/22 10:03 clindamycin Allergy Mild Nausea and Verified 02/04/22 10:03 Vomiting ketorola
[2022-02-04 12:00] VITALS: BP 141/78; PULSE 74; RESP 14; O2SAT 99
[2022-02-04 12:10] VITALS: BP 165/98; PULSE 74; RESP 13; O2SAT 100
[2022-02-04 12:20] VITALS: BP 158/92; PULSE 74; RESP 20; O2SAT 100
== END 2022-02-04 12:28 | disposition home or self-care (01) ==
PROVIDERS: PCP Internal Medicine; Visit Provider Internal Medicine Gastroenterology
PROC: 0DJD8ZZ Inspection of Lower Intestinal Tract, Via Natural or Artificial Opening Endoscopic (ICD-10-PCS; CPT 45378; principal; 2022-02-04 11:00)
DX: K62.5 Hemorrhage of anus and rectum (principal); D12.2 Benign neoplasm of ascending colon; D12.5 Benign neoplasm of sigmoid colon; K64.8 Other hemorrhoids; I10 Essential (primary) hypertension; K21.9 Gastro-esophageal reflux disease without esophagitis; E11.40 Type 2 diabetes mellitus with diabetic neuropathy, unspecified; Z87.891 Personal history of nicotine dependence
CPT/HCPCS: 45380; 82948; 88305; J2704; J7120

== ENCOUNTER 2022-02-21 09:15 | Outpatient (CLI) | payer MEDICARE, OTHER, SELFPAY ==
--- NOTE | ~2022-02-21 | MM_ITS ---
EXAMINATION: MM screening maria teresa BI w kevin HISTORY: Screening TECHNIQUE: Craniocaudal and mediolateral oblique 3-D tomosynthesis images were obtained and synthetic 2-D images were generated. CAD analysis was submitted and interpreted. COMPARISON: Comparison to multiple prior studies sequentially, with oldest reviewed study dated Matty rison to multiple prior studies sequentially, with oldest reviewed study dated 04/19/2016. . BREAST PARENCHYMAL COMPOSITION: There are scattered areas of fibroglandular density. FINDINGS: There is no evidence of suspicious mass, calcification, or architectural distortion to sugg est malignancy in either breast. There has been no suspicious interval change. IMPRESSION: 1. No mammographic evidence of malignancy. 2. Recommend routine screening mammography in one year. BI-RADS Category 1: Negative Reviewed, dictated and finalized at location A.
== END 2022-02-21 09:16 | disposition home or self-care (01) ==
LOC: ANHIMG 09:17
PROVIDERS: PCP Internal Medicine; Visit Provider Internal Medicine
DX: Z12.31 Encounter for screening mammogram for malignant neoplasm of breast (principal)
CPT/HCPCS: 77063; 77067

== ENCOUNTER 2022-03-13 08:19 | Observation (INO) | payer MEDICARE, OTHER, SELFPAY ==
[2022-03-13] VITALS (19 sets, daily range): BP systolic 148–183; BP diastolic 75–89; PULSE 58–76; RESP 12–20; TEMP 36.6–37.2; O2SAT 76–100
--- NOTE | ~2022-03-13 | MR_ITS ---
EXAMINATION: MR brain/brain stem wo/w con DATE: 03/13/2022 17:56 INDICATION: Dizziness. TECHNIQUE: Magnetic resonance imaging (MRI) of the brain and brainstem was performed without and with 12 mL MultiHance intravenous contrast. COMPARISON: Brain MRI 01/05/2021, head CT 03/13/2022 FINDINGS: There are scattered areas of nonspecific increased T2-weighted signal intensity in the cere bral white matter and shalini. There is no intracranial hemorrhage, acute infarction, or abnormal intrac ranial mass lesion. The ventricles are normal in size. There is mild mucosal thickening in the parana jayla sinuses. There are likely changes of ocular lens replacement surgeries. The mastoid air cells are normal. IMPRESSION: 1. Mild nonspecific cerebral white matter disease and pontine disease, worsened from 01/05/2021, which likely represents chronic small vessel ischemic disease. Reviewed, dictated and finalized at location A.
--- NOTE | ~2022-03-13 | CT_ITS ---
EXAMINATION: CT BRAIN W/O DATE: 03/13/2022 09:31 INDICATION: Dizziness. Unsteady gait. TECHNIQUE: Computed tomography (CT) of the head was performed without intravenous contrast. The dose- length product was 529.67 mGy-cm. Automated exposure control and iterative reconstruction technique w ere employed. COMPARISON: CT dated 04/11/2021 FINDINGS: Normal brain parenchymal volume for age. Normal coats-white differentiation. No acute intrac ranial hemorrhage, infarction, mass or mass effect. There is mucosal thickening of the maxillary and ethmoid sinuses. Mastoids are pneumatized. No ventriculomegaly or midline shift. Midline sagittal images demonstrate a normal corpus callosum, c raniovertebral junction and sella turcica. Basilar cisterns are patent. IMPRESSION: 1. No acute intracranial abnormality. 2: Mild sinus disease. Reviewed, dictated and finalized at location B.
--- NOTE | ~2022-03-13 | XR_ITS ---
EXAMINATION: XR chest 1V INDICATION: Dizziness TECHNIQUE: AP view the chest is COMPARISON: 04/11/2021 FINDINGS: The lungs are free of acute opacities. There is no pleural effusion or pneumothorax. Chroni c elevation of the left hemidiaphragm is noted. The cardiomediastinal silhouette is normal. IMPRESSION: 1. No acute cardiopulmonary abnormality. Reviewed, dictated and finalized at location A.
--- NOTE | 2022-03-13 08:48 | ECG_ITS ---
Measurements Intervals [place] Rate: 65 P: 40 MO: 221 QRS: -1 QRSD: 94 T: 30 QT: 409 QTc: 428 Interpretive Statements SINUS RHYTHM WITH FIRST DEGREE AV BLOCK INCOMPLETE RIGHT BUNDLE BRANCH BLOCK BASELINE ARTIFACT- I, II, AVR, AVF, V1, V3 ABNORMAL ECG Electronically Signed On 03-13-2022 9:48:26 CDT by Abelardo Corea D.O.
[2022-03-13 08:53] LABS: Glucose Point of Care 165 mg/dl (65-105)
--- NOTE | 2022-03-13 08:57 | ED.DIZZY ---
HPI - Dizziness General Chief Complaint: Dizziness Stated Complaint: i am so dizzy Time Seen by Provider: 03/13/22 08:56 Source: patient and EMS Mode of arrival: EMS Limitations: no limitations History of Present Illness HPI Narrative: Patient is 76 years old -[place] female got Out of bed and started feeling dizzy, everything is wobbly, could not keep standing or walking because of loss of balance. She denies any fever, chills, nausea, vomiting, chest pain, shortness of breath, headache, focal deficit. Patient denies having similar symptoms in the past. Related Data Home Medications Medication Instructions Recorded Confirmed blood sugar diagnostic #10 each 09/15/19 02/04/22 calcium carbonate 600 mg-vitamin 1 tablet PO BID 04/04/20 02/04/22 D3 20 mcg (800 unit) tablet multivit with 1 tablet PO DAILY 04/04/20 02/04/22 odecqvcs-cfjb-CS-lutein 8 mg iron-400 mcg-300 mcg tablet amitriptyline 100 mg PO DAILY 01/23/22 02/04/22 diltiazem HCl 180 mg PO DAILY 01/23/22 02/04/22 ferrous sulfate 325 mg PO DAILY 01/23/22 02/04/22 Allergies Allergy/AdvReac Type Severity Reaction Status Date / Time codeine Allergy Severe Itching Verified 03/13/22 08:43 morphine Allergy Severe Rash Verified 03/13/22 08:43 clindamycin Allergy Mild Nausea and Verified 03/13/22 08:43 Vomiting ketorolac Allergy Mild Itching Verified 03/13/22 08:43 gabapentin Allergy Unknown Nausea Verified 03/13/22 08:43 trimethoprim Allergy Unknown unknown Verified 03/13/22 08:43 metformin AdvReac Mild Vomiting Verified 03/13/22 08:43 Sulfa (Sulfonamide AdvReac Mild Nausea and Verified 03/13/22 08:43 Antibiotics) Vomiting meclizine AdvReac Shakiness Verified 03/13/22 08:43 metoclopramide [From Reglan] AdvReac Anxiety Verified 03/13/22 08:43 Review of Systems Review of Systems: All systems reviewed & are unremarkable except as noted in HPI and below PMFSH Past Medical History Medical History DDD (degenerative disc disease) Diabetes type 2, controlled Essential (primary) hypertension GERD (gastroesophageal reflux disease) Migraine headache Neuropathy Seasonal allergies Tinnitus Chronic Surgical History Surgical History History of cardiac catheterization History of cataract surgery History of hernia repair History of hysterectomy Family History Family History Mother Hypertension Cerebrovascular accident Family history of congestive heart failure, Onset Age: 72 Family history of heart disease in male family member before age 55 Patient's mother is Acute myocardial infarction Father Patient's father is Cerebrovascular accident Sibling Family history of lupus erythematosus Other Diabetes mellitus Family history of allergic disorder Social History Social History Years smoked: 15 Smoking status: Former smoker Tobacco type: cigarettes Second hand tobacco smoke exposure: Yes Smoking end date: 10/26/85 Alcohol intake: never Gender identity (if verbalized by the patient): Female Spiritual care concerns: No Exam Narrative: General appearance: Well-developed, well-nourished Skin: Normal color Head: Normocephalic, nontraumatic Eyes: Clear conjunctiva ENT: Oropharynx normal, ears normal, nose normal Neck: Supple, nontender Chest and respiratory: Airway patent, no respiratory distress, no accessory muscle use Heart: Regular rate/rhythm Abdomen: Soft, nontender, no organomegaly, quiet bowel sounds Vascular: Normal peripheral pulses, normal capillary refill. Musculoskeletal: Normal range of motion, nontender back Neurologic: Alert and oriented ?3, TRAIL[employer] MA[employer]TE[employer] WORKER is normal as tested, no gross motor deficit
--- NOTE | 2022-03-13 09:32 | PC.NURSE ---
Patient in radiology.
[2022-03-13 09:57] LABS: Basophils Percent Auto 0.3 % (0.2-1.2); Eosinophils Absolute Auto 0.2 K/mm3 (0-0.3); Eosinophils Percent Auto 2.5 % (0-4.4); Hematocrit 36.2 % (37.0-47.0); Hemoglobin 10.6 g/dL (12.0-15.0); Immature Granulocyte Absolute 0.02 K/mm3 (0.00-0.031); Immature Granulocyte Percent A 0.3 % (0-0.5); Lymphocytes Absolute Auto 2.27 K/mm3 (0.9-3.2); Lymphocytes Percent Auto 35.2 % (18.3-44.2); Mean Corpuscular HGB Conc 29.3 g/dl (32-36); Mean Corpuscular Hemoglobin 23.1 pg (26-34); Mean Platelet Volume 9.5 fl (7.4-10.4); Monocytes Absolute Auto 0.6 K/mm3 (0.1-0.6); Monocytes Percent Auto 9.6 % (2.6-8.5); Neutrophils Absolute Auto 3.4 K/mm3 (1.3-6.7); Neutrophils Percent Auto 52.1 % (45.5-73.1); Platelet Count Result 226 k/mm3 (150-375); Red Blood Count 4.58 M/mm3 (4.2-5.4); Red Cell Distribution Width 14.4 % (11.5-14.5); White Blood Count 6.4 K/mm3 (4.5-10.0)
[2022-03-13 10:09] LABS: Partial Thromboplastin Time 26.3 SECONDS (22.3-36.8); Prothrombin Time 13.1 Seconds (11.1-14.7)
[2022-03-13 10:11] LABS: Alanine Aminotransferase 30 U/L (6-35); Albumin Level 3.7 g/dL (3.5-5.1); Alkaline Phosphatase 67 U/L (38-126); Anion Gap 6 mmol/L (8-16); Aspartate Amino Transferase 27 U/L (14-36); Bilirubin,Total < 0.1 mg/dL (0.2-1.3); Blood Urea Nitrogen 12 mg/dL (7-17); Calcium 9.1 mg/dL (8.4-10.2); Carbon Dioxide 30 mmol/L (22-30); Chloride 107 mmol/L (98-107); Estimated CRCL calculation 43 ml/min; Estimated Glomerular Filt Rate > 60; Glucose 120 mg/dL (65-110); Potassium 4.7 mmol/L (3.4-5.0); Sodium 143 mmol/L (137-145)
--- NOTE | 2022-03-13 10:15 | PC.NURSE ---
Patient refusing a straight catheter at this time and states she will attempt to urinate.
[2022-03-13 10:21] LABS: Troponin I < 0.012 ng/mL (0.000-0.034)
[2022-03-13 10:28] LABS: Appearance Urine Clear (Clear); Bilirubin Urine Negative (Negative); Blood Urine Negative (Negative); Color Urine Yellow (Yellow); Glucose Urine UA Negative (Negative); Ketones Urine Negative (Negative); Leukocyte Esterase Ur Trace LEU/UL (Negative); Nitrate Urine Negative (Negative); Protein Urine Negative (Negative); Urobilinogen Urine 0.2 mg/dL (<2.0)
[2022-03-13 10:36] LABS: Add Urine Microscopic? YES
[2022-03-13 10:38] LABS: RBC Urine 0-2 /hpf (0-2); WBC Urine 0-3 /hpf
[2022-03-13 10:41] LABS: Platelet Estimate Adequate (Adequate)
[2022-03-13 10:42] LABS: Hypochromasia 1+ (NORMAL)
[2022-03-13] MEDS: diazePAM INJ (*CRX) 10 MG/2 ML SYRINGE 5 MG IV PUSH (11:20)
--- NOTE | 2022-03-13 19:11 | PM.IMHP ---
H&P: HPI History of Present Illness Date/Time: Patient was placed observation status for expected length of stay less than 23 hours for management, will plan to re-evaluate tomorrow for improvement. 03/13/22 19:11 Chief Complaint: Dizziness Narrative: Ms. Kingsley is a 76-year-old female who presented to the emergency room with complaints of dizziness. Patient states that she went to bed last evening and felt fine, and woke up this morning and when she went to get out of bed she moved her head and she became very dizzy. Patient states that as she tried to ambulate she continued to have dizziness and had to hold onto things because the dizziness increased. Patient denied any associated nausea or vomiting. Patient states this had occurred in the past and she has seen Neurology for this issue, but the dizziness was not this bad. Patient states that her dizziness is worse with head movement or standing. Patient states that she is lying still that she has no dizziness. Patient was given Valium in the emergency room and she states she felt mild improvement. Patient denies any weakness or numbness to upper lower extremities. Patient denies any slurring of speech or facial droop. Upon evaluation in emergency room patient underwent CT scan the brain that showed no acute intracranial abnormality and mild sinus disease. Patient did have an EKG that shows a normal sinus rhythm with an incomplete right bundle branch block which is no change from previous EKG. Patient denies any chest pain, shortness a breath, syncope, or near syncopal episodes. Patient does have a known history of hypertension, diabetes mellitus, nonobstructive coronary artery disease with mild stenosis noted to her LAD on a cardiac catheterization in the past, and vertigo. Review of Systems Review of Systems: A 12 point review of systems was completed patient all pertinent positive and negative per HPI the remainder are unremarkable. [facility] Past Medical History Medical History DDD (degenerative disc disease) Diabetes type 2, controlled Essential (primary) hypertension GERD (gastroesophageal reflux disease) Migraine headache Neuropathy Seasonal allergies Tinnitus Chronic Surgical History Surgical History History of cardiac catheterization History of cataract surgery History of hernia repair History of hysterectomy Family History Family History Mother Hypertension Cerebrovascular accident Family history of congestive heart failure, Onset Age: 72 Family history of heart disease in male family member before age 55 Patient's mother is Acute myocardial infarction Father Patient's father is Cerebrovascular accident Sibling Family history of lupus erythematosus Other Diabetes mellitus Family history of allergic disorder Social History Social History Years smoked: 19 Smoking status: Former smoker Tobacco type: cigarettes Second hand tobacco smoke exposure: Yes Smoking end date: 10/26/85 Alcohol intake: never Substance use: never Substance use type: does not use Gender identity (if verbalized by the patient): Female Spiritual care concerns: No Meds Home Medications and Allergies Home Medications Medication Instructions Recorded Confirmed Type calcium carbonate 600 mg-vitamin 1 tablet PO BID 04/04/20 03/13/22 History D3 20 mcg (800 unit) tablet multivit with 1 tablet PO DAILY 04/04/20 03/13/22 History gmgnihag-jgcw-BA-lutein 8 mg iron-400 mcg-300 mcg tablet atorvastatin 10 mg tablet 10 mg PO DAILY #1 tablet 06/07/21 03/13/22 Rx sitagliptin 100 mg tablet 100 mg PO DAILY #90 tablet 12/17/21 03/13/22 Rx amitriptyline 100 mg PO DAILY 01/23/22 03/13/22 History diltiazem HCl 180 mg PO DAILY 01/23/22
[2022-03-13] MEDS: atenoloL 50 MG TABLET PO (23:00)
[2022-03-13] MEDS: AMITRIPTYLINE HCL 25 MG TABLET 100 MG PO (23:17)
[2022-03-13 23:32] LABS: Glucose Point of Care 96 mg/dl (65-105)
[2022-03-14] VITALS (8 sets, daily range): BP systolic 127–148; BP diastolic 63–77; PULSE 63–73; RESP 16; TEMP 36.5; O2SAT 98
[2022-03-14 05:57] LABS: Basophils Percent Auto 0.3 % (0.2-1.2); Eosinophils Absolute Auto 0.2 K/mm3 (0-0.3); Eosinophils Percent Auto 2.8 % (0-4.4); Hematocrit 34.3 % (37.0-47.0); Hemoglobin 10.4 g/dL (12.0-15.0); Immature Granulocyte Absolute 0.02 K/mm3 (0.00-0.031); Immature Granulocyte Percent A 0.3 % (0-0.5); Lymphocytes Absolute Auto 2.56 K/mm3 (0.9-3.2); Lymphocytes Percent Auto 44.1 % (18.3-44.2); Mean Corpuscular HGB Conc 30.3 g/dl (32-36); Mean Corpuscular Hemoglobin 23.6 pg (26-34); Mean Corpuscular Volume 77.8 fl (80-100); Mean Platelet Volume 9.3 fl (7.4-10.4); Monocytes Absolute Auto 0.5 K/mm3 (0.1-0.6); Monocytes Percent Auto 9.3 % (2.6-8.5); Neutrophils Absolute Auto 2.5 K/mm3 (1.3-6.7); Neutrophils Percent Auto 43.2 % (45.5-73.1); Platelet Count Result 228 k/mm3 (150-375); Red Blood Count 4.41 M/mm3 (4.2-5.4); Red Cell Distribution Width 14.4 % (11.5-14.5); White Blood Count 5.8 K/mm3 (4.5-10.0)
[2022-03-14 07:50] LABS: Glucose Point of Care 98 mg/dl (65-105)
[2022-03-14 07:54] LABS: Anion Gap 5 mmol/L (8-16); Blood Urea Nitrogen 14 mg/dL (7-17); Calcium 9.1 mg/dL (8.4-10.2); Carbon Dioxide 30 mmol/L (22-30); Chloride 105 mmol/L (98-107); Estimated CRCL calculation 38 ml/min; Estimated Glomerular Filt Rate > 60; Glucose 96 mg/dL (65-110); Magnesium 1.7 mg/dL (1.6-2.3); Potassium 4.5 mmol/L (3.4-5.0); Sodium 140 mmol/L (137-145)
[2022-03-14] MEDS: LOSARTAN POTASSIUM 100 MG TABLET PO (09:18)
[2022-03-14] MEDS: FERROUS SULFATE 324 MG TABLET PO (09:19)
[2022-03-14] MEDS: THERAPEUTIC MULTIVITAMINS/MINERALS TAB (*BKC) 1 TABLET PO (09:19)
[2022-03-14] MEDS: PANTOPRAZOLE 40 MG TABLET PO (09:19)
[2022-03-14] MEDS: OMEGA 3 POLYUNSAT FATTY ACIDS 1 GM CAP PO (09:19)
[2022-03-14] MEDS: dilTIAZem HCL CD 180 MG CAP.ER.24H PO (09:19)
[2022-03-14] MEDS: atenoloL 50 MG TABLET PO (09:19)
[2022-03-14] MEDS: ATORVASTATIN 10 MG TABLET PO (09:19)
[2022-03-14] MEDS: ENOXAPARIN 40 MG/0.4 ML SYRINGE SUB-Q (09:21)
[2022-03-14 11:37] LABS: Glucose Point of Care 121 mg/dl (65-105)
--- NOTE | 2022-03-14 12:02 | PM.DS ---
DS: Admitting Diagnosis Discharge Date 02/2022 Admitting Diagnosis Dizziness and vertigo DS: Discharge Diagnosis Discharge Diagnosis (1) Dizziness: Code(s): R42 - Dizziness and giddiness Status: Acute Assessment and Plan: Dizziness is much improved today. Patient is able walk around the room without issues. She has no concerns for going home. I recommend she follow up with Neurology as an outpatient. She did have a workup in the hospital was unrevealing. MRI did not show any acute issues. (2) Essential (primary) hypertension: Code(s): I10 - Essential (primary) hypertension Status: Acute Assessment and Plan: Will continue home medications (3) Type 2 diabetes mellitus with diabetic polyneuropathy, without long-term current use of insulin: Code(s): E11.42 - Type 2 diabetes mellitus with diabetic polyneuropathy Status: Acute Assessment and Plan: Continue home medications DS: Summary Hospital Course Hospital Course: See discharge planning diagnoses Time Spent with Patient Time attestation: Total time spent providing and/or coordinating discharge services: Exam Narrative: Constitutional: Patient is well-nourished in no acute distress. Patient is alert and oriented x3 HEENT: Moist mucous membranes. No scleral icterus. No lymphadenopathy. Neck: No carotid bruits noted no JVD noted Lungs: Lung sounds are clear to auscultation bilaterally. No accessory muscle use. No rhonchi, rales, or wheezes noted. Cardiovascular: Apical pulse is regular rate and rhythm. S1-S2 noted, no S3 or S4 noted. No gallops, murmurs, or rubs noted. Abdomen: Soft, round, and nontender. No palpable masses. Extremities: No edema. Nontender. Skin: No rashes or lesions. Warm and dry. Skin is intact. Neurological: No focal neurological deficits. Cranial nerves II-XII grossly intact. Psychiatric: Cooperative, appropriate mood, and affect DS: Data Data Completed and Pending Labs on day of discharge: Labs from last 24 hours 03/14/22 03/14/22 03/14/22 11:32 07:46 07:32 WBC RBC Hgb Hct MCV MCH MCHC RDW Plt Count MPV Immature Gran % (Auto) Neut % (Auto) Lymph % (Auto) [place] % (Auto) Eos % (Auto) Baso % (Auto) Lymph # (Auto) [place] # (Auto) Eos # (Auto) Baso # (Auto) Abs Immat Gran (auto) Absolute Neuts (auto) Absolute Nucleated RBC Nucleated RBC % Sodium 140 Potassium 4.5 Chloride 105 Carbon Dioxide 30 Anion Gap 5 L BUN 14 Creatinine 0.90 Estim Creat Clear Calc 38 Estimated GFR > 60 Glucose 96 POC Capillary Glucose 121 H 98 Calcium 9.1 Magnesium 1.7 03/14/22 03/13/22 05:44 20:02 WBC 5.8 RBC 4.41 Hgb 10.4 L Hct 34.3 L MCV 77.8 L MCH 23.6 L MCHC 30.3 L RDW 14.4 Plt Count 228 MPV 9.3 Immature Gran % (Auto) 0.3 Neut % (Auto) 43.2 L Lymph % (Auto) 44.1 [place] % (Auto) 9.3 H Eos % (Auto) 2.8 Baso % (Auto) 0.3 Lymph # (Auto) 2.56 [place] # (Auto) 0.5 Eos # (Auto) 0.2 Baso # (Auto) 0.0 Abs Immat Gran (auto) 0.02 Absolute Neuts (auto) 2.5 Absolute Nucleated RBC 0.0 Nucleated RBC % 0.0 Sodium Potassium Chloride Carbon Dioxide Anion Gap BUN Creatinine Estim Creat Clear Calc Estimated GFR Glucose POC Capillary Glucose 96 Calcium Magnesium Discharge Plan Discharge Attending physician on discharge: Sebastián Suárez Consulting providers: Justin Merino Discharging Clinician: Sebastián Suárez Patient Disposition: Home, Self-Care Activity: no preference Diet: as tolerated Patient Instructions: Antibiotic Form Stand Alone Forms: General Discharge Information Follow-up/Referrals: Justin Merino MD [Physician] - Discharge Medications: New meclizine 12.5 mg tablet 12.5 mg PO TID PRN (Reason: dizziness) 7 Days Qty: 21 RF: 0 Contin
== END 2022-03-14 13:25 | disposition home or self-care (01) ==
LOC: ANHED 11:21 → ANH3MEDSUR 13:47 → ANH3MED 14:31
PROVIDERS: Nurse Practitioner Adult Health; Admitting Provider Chiropractor; Emergency Provider Emergency Medicine; PCP Internal Medicine; Visit Provider Chiropractor
DX: R42 Dizziness and giddiness (principal); I10 Essential (primary) hypertension; E11.42 Type 2 diabetes mellitus with diabetic polyneuropathy; K21.9 Gastro-esophageal reflux disease without esophagitis; Z87.891 Personal history of nicotine dependence; I25.10 Atherosclerotic heart disease of native coronary artery without angina pectoris
CPT/HCPCS: 36415; 70450; 70553; 71045; 80048; 80053; 81001; 82948; 83735; 84484; 85025; 85610; 85730; 93005; 96372; 96374; 97161; 99285; A9270; A9577; G0378; J1650; J3360

== ENCOUNTER 2022-07-14 17:37 | Outpatient (CLI) | payer MEDICARE, OTHER, SELFPAY ==
[2022-07-14 18:10] LABS: Hemoglobin A1C 6.5 % (<5.7)
[2022-07-14 18:19] LABS: Alanine Aminotransferase 35 U/L (6-35); Albumin Level 4.1 g/dL (3.5-5.1); Alkaline Phosphatase 76 U/L (38-126); Anion Gap 9 mmol/L (8-16); Aspartate Amino Transferase 29 U/L (14-36); Bilirubin,Total 0.3 mg/dL (0.2-1.3); Blood Urea Nitrogen 8 mg/dL (7-17); Calcium 10.8 mg/dL (8.4-10.2); Carbon Dioxide 32 mmol/L (22-30); Chloride 102 mmol/L (98-107); Cholesterol 122 mg/dL (0-200); Estimated Glomerular Filt Rate > 60; Glucose 97 mg/dL (65-110); HDL Direct 55 mg/dL; Potassium 3.8 mmol/L (3.4-5.0); Sodium 143 mmol/L (137-145); Triglycerides 85 mg/dL (<150)
[2022-07-14 18:30] LABS: LDL Cholesterol Direct 41 mg/dL
[2022-07-14 18:35] LABS: Vitamin D 25 Hydroxy 52.7 ng/mL
== END 2022-07-14 17:38 | disposition home or self-care (01) ==
PROVIDERS: PCP Internal Medicine; Visit Provider Nurse Practitioner
DX: E78.5 Hyperlipidemia, unspecified (principal); E11.42 Type 2 diabetes mellitus with diabetic polyneuropathy; E55.9 Vitamin D deficiency, unspecified
CPT/HCPCS: 36415; 80053; 80061; 82306; 83036

== ENCOUNTER 2022-10-20 18:01 | Emergency (ER) | payer MEDICARE, OTHER, SELFPAY ==
--- NOTE | ~2022-10-20 | CT_ITS ---
EXAMINATION: CT brain wo con DATE: 10/20/2022 20:45 INDICATION: Headache . TECHNIQUE: Computed tomography (CT) of the head was performed without intravenous contrast. The mA wa s adjusted according to patient size. Iterative reconstruction technique was employed. The dose-lengt h product was 605.33 mGy-cm. COMPARISON: 03/13/2022. FINDINGS: No acute intracranial hemorrhage or extra-axial fluid collection. No hydrocephalus, mass, or herniation. No acute ischemic infarct. Unremarkable dural venous sinus attenuation. No acute osseous abnormality. Air-fluid level in the left maxillary sinus, the remaining aerated spaces are clear. IMPRESSION: No acute intracranial process. Left maxillary sinus findings may represent acute sinusitis in the evelyn ropriate clinical context. Reviewed, dictated and finalized at location K. [employer] IMPRESSION: No acute intracranial process. Left maxillary sinus findings may represent acut e sinusitis in the appropriate clinical context.
--- NOTE | ~2022-10-20 | XR_ITS ---
EXAMINATION: XR chest 2V Exam Date/Time: 10/20/2022 19:12 COLLEGE DIRECTOR HISTORY: L.SIDED FRONT BACK PAIN RADIATING UP TO HER HEAD. Comparison: 03/13/2022. RESULT: Lines, tubes, and devices: None. Lungs and pleura: Senescent change. Bibasilar scar/atelectasis. Chronic left hemidiaphragm elevation . Cardiomediastinal silhouette: Stable. Other: No acute osseous or upper abdominal finding. IMPRESSION: No acute cardiopulmonary process. Reviewed, dictated and finalized at location K. EGE DIRECTOR
--- NOTE | 2022-10-20 18:09 | ECG_ITS ---
Measurements Intervals [place] Rate: 64 P: 34 ME: 196 QRS: -5 QRSD: 105 T: 39 QT: 399 QTc: 415 Interpretive Statements SINUS RHYTHM NONSPECIFIC T-WAVE ABNORMALITY BORDERLINE ECG COMPARED TO ECG 03/13/2022 08:30:53 T-WAVE ABNORMALITY NOW PRESENT Electronically Signed On 10-21-2022 17:39:49 [employer] by Stef Enciso M.D.
[2022-10-20 18:51] VITALS: BP 144/60; PULSE 65; RESP 16; TEMP 36.6; O2SAT 99
[2022-10-20 19:18] LABS: Basophils Percent Auto 0.2 % (0.2-1.2); Eosinophils Absolute Auto 0.1 K/mm3 (0-0.3); Eosinophils Percent Auto 0.5 % (0-4.4); Hematocrit 36.2 % (37.0-47.0); Hemoglobin 10.5 g/dL (12.0-15.0); Immature Granulocyte Absolute 0.03 K/mm3 (0.00-0.031); Immature Granulocyte Percent A 0.3 % (0-0.5); Lymphocytes Absolute Auto 1.25 K/mm3 (0.9-3.2); Lymphocytes Percent Auto 13.3 % (18.3-44.2); Mean Corpuscular Hemoglobin 23.4 pg (26-34); Mean Corpuscular Volume 80.8 fl (80-100); Mean Platelet Volume 9.8 fl (7.4-10.4); Monocytes Absolute Auto 0.8 K/mm3 (0.1-0.6); Monocytes Percent Auto 8.9 % (2.6-8.5); Neutrophils Absolute Auto 7.2 K/mm3 (1.3-6.7); Neutrophils Percent Auto 76.8 % (45.5-73.1); Platelet Count Result 261 k/mm3 (150-375); Red Blood Count 4.48 M/mm3 (4.2-5.4); Red Cell Distribution Width 15.2 % (11.5-14.5); White Blood Count 9.4 K/mm3 (4.5-10.0)
[2022-10-20 19:30] LABS: Hypochromasia 1+ (NORMAL); Ovalocytes 1+ (NORMAL); Platelet Estimate Adequate (Adequate); Schistocytes None Seen (NORMAL)
[2022-10-20 19:38] VITALS: BP 165/84; PULSE 69; RESP 19; O2SAT 100
[2022-10-20 19:39] LABS: Alanine Aminotransferase 33 U/L (6-35); Albumin Level 3.9 g/dL (3.5-5.1); Alkaline Phosphatase 77 U/L (38-126); Anion Gap 8 mmol/L (8-16); Aspartate Amino Transferase 26 U/L (14-36); Bilirubin,Total 0.5 mg/dL (0.2-1.3); Blood Urea Nitrogen 13 mg/dL (7-17); Carbon Dioxide 25 mmol/L (22-30); Chloride 106 mmol/L (98-107); Estimated CRCL calculation 48 ml/min; Estimated Glomerular Filt Rate > 60; Glucose 114 mg/dL (65-110); Lipase 20 U/L (23-300); Potassium 3.9 mmol/L (3.4-5.0); Sodium 139 mmol/L (137-145)
[2022-10-20 19:51] LABS: Troponin I < 0.012 ng/mL (0.000-0.034)
--- NOTE | 2022-10-20 20:01 | ED.GENADULT ---
HPI - General Adult General Chief complaint: Chest Pain Stated complaint: left sided back pain that radiates to neck Time Seen by Provider: 10/20/22 19:31 History of Present Illness HPI narrative: This is a 77-year-old female past medical history of neuropathy, diabetes, who presents to the emergency department complaining of left-sided chest wall, left shoulder and left scalp pain for the past several days. Patient states she was in her usual state of health, when she noted a sharp pain to the left chest wall, this migrated to the left shoulder then to the left neck and scalp. Pain is aggravated by movement but not exertion or chewing. She denies any associated visual changes/loss, nausea, vomiting, difficulty breathing, fevers, chills or rash. She has not felt the pain like this before. Related Data Home Medications Medication Instructions Recorded Confirmed calcium carbonate 600 mg-vitamin 1 tablet PO BID 04/04/20 07/16/22 D3 20 mcg (800 unit) tablet (Caltrate with Vitamin D3) multivit with 1 tablet PO DAILY 04/04/20 07/16/22 buqfoegk-fgun-RX-lutein 8 mg iron-400 mcg-300 mcg tablet (Centrum Silver Women) ferrous sulfate 325 mg (65 mg 325 mg PO DAILY 01/23/22 07/16/22 iron) tablet (Iron (ferrous sulfate)) omega-3 fatty acids 1,000 mg 1,000 mg PO DAILY 03/13/22 07/16/22 capsule Allergies Allergy/AdvReac Type Severity Reaction Status Date / Time codeine Allergy Severe Itching Verified 07/23/22 09:13 morphine Allergy Severe Rash Verified 07/23/22 09:13 ketorolac Allergy Mild Itching Verified 07/23/22 09:13 trimethoprim Allergy Unknown unknown Verified 07/23/22 09:13 clindamycin AdvReac Mild Nausea and Verified 10/20/22 20:36 Vomiting metformin AdvReac Mild Vomiting Verified 07/23/22 09:13 Sulfa (Sulfonamide AdvReac Mild Nausea and Verified 07/23/22 09:13 Antibiotics) Vomiting gabapentin AdvReac Unknown Nausea Verified 10/20/22 20:36 meclizine AdvReac Shakiness Verified 07/23/22 09:13 metoclopramide [From Reglan] AdvReac Anxiety Verified 07/23/22 09:13 Review of Systems Review of Systems: CONSTITUTIONAL: Denies fever, chills, or sweats. EYES: Denies visual changes, redness, or discharge. ENT: Denies rhinorrhea, congestion, sore throat, or otalgia. CARDIOVASCULAR: Denies chest pain, palpitations, or edema. RESPIRATORY: Denies cough or dyspnea. GASTROINTESTINAL: Denies abdominal pain, nausea, vomiting, or diarrhea. GENITOURINARY: Denies dysuria or hematuria. SKIN: Denies rash or itching. NEUROLOGIC: Denies headache, numbness, dizziness, or weakness. PSYCHIATRIC: Denies anxiety or depression. [facility] Past Medical History Medical History DDD (degenerative disc disease) Diabetes type 2, controlled Essential (primary) hypertension GERD (gastroesophageal reflux disease) Migraine headache Neuropathy Seasonal allergies Tinnitus Chronic Surgical History Surgical History History of cardiac catheterization History of cataract surgery History of hernia repair History of hysterectomy Family History Family History Mother Hypertension Cerebrovascular accident Family history of congestive heart failure, Onset Age: 72 Family history of heart disease in male family member before age 55 Patient's mother is Acute myocardial infarction Father Patient's father is Cerebrovascular accident Sibling Family history of lupus erythematosus Other Diabetes mellitus Family history of allergic disorder Social History Social History Years smoked: 19 Smoking status: Former smoker Tobacco type: cigarettes Second hand tobacco smoke exposure: Yes Smoking end date: 10/26/85 Alcohol intake: never Substance use: never Substance use type: do
[2022-10-20 20:13] LABS: INR 1.2; Prothrombin Time 14.3 Seconds (11.1-14.7)
[2022-10-20 20:14] LABS: Partial Thromboplastin Time 28.3 SECONDS (22.3-36.8)
[2022-10-20 20:20] LABS: Erythrocyte Sedimentation Rate 65 mm/hr (0-20)
[2022-10-20 20:25] VITALS: BP 162/75; PULSE 69; RESP 23; O2SAT 100
[2022-10-20] MEDS: ACETAMINOPHEN 500 MG TABLET 1000 MG PO (20:46)
== END 2022-10-20 21:39 | disposition home or self-care (01) ==
PROVIDERS: Emergency Medicine; Emergency Provider Preventive Medicine Aerospace Medicine; PCP Internal Medicine
DX: E11.40 Type 2 diabetes mellitus with diabetic neuropathy, unspecified (principal); I10 Essential (primary) hypertension; K21.9 Gastro-esophageal reflux disease without esophagitis; Z90.710 Acquired absence of both cervix and uterus; Z98.49 Cataract extraction status, unspecified eye; Z87.891 Personal history of nicotine dependence; R94.31 Abnormal electrocardiogram [ECG] [EKG]; R93.0 Abnormal findings on diagnostic imaging of skull and head, not elsewhere classified; Z79.84 Long term (current) use of oral hypoglycemic drugs
CPT/HCPCS: 36415; 70450; 71046; 80053; 83690; 84484; 85025; 85610; 85652; 85730; 93005; 99284; A9270